=== PATIENT | female | born 1985 | race Caucasian/White ===

== ENCOUNTER → 2016-09-04 | Outpatient (CLI) | payer MEDICAID ==
--- NOTE | 2016-09-04 15:52 | RADIOLOGY REPORT (SQ) ---
EXAM DESCRIPTION: LUMBAR SPINE COMPLETE COMPLETED DATE/TIME: 09/04/2016 2:52 pm REASON FOR STUDY: LOW BACK PAIN M54.5 LOW BACK PAIN COMPARISON: None. NUMBER OF VIEWS: Five views including obliques. TECHNIQUE: AP, lateral, oblique, and sacral radiographic images acquired of the lumbar spine. LIMITATIONS: None. FINDINGS: MINERALIZATION: Normal. SEGMENTATION: Normal. No transitional anatomy. ALIGNMENT: Very mild convex leftward lower lumbar curvature VERTEBRAE: Maintained height. No fracture or worrisome bone lesion. DISCS: Disc space loss of height at L4-5 and L5-S1 POSTERIOR ELEMENTS: Question spondylolysis on the left at L4, with superimposed left-sided L4-5 facet arthropathy HARDWARE: None in the spine. PARASPINAL SOFT TISSUES: Normal. PELVIS: Intact as visualized. No fractures or worrisome bone lesions. SI joints intact. OTHER: Clips right upper quadrant post cholecystectomy IMPRESSION: Lower lumbar disc space loss of height at L4-5 and L5-S1. Asymmetric left-sided facet hypertrophy at L4-5. Question left-sided L4 spondylolysis TECHNICAL DOCUMENTATION: JOB ID: [id number] [employer]- All Rights Reserved
== END ==
LOC: OD 14:36
PROVIDERS: ATTEND Family Medicine
DX: M54.5 Low back pain (principal)
CPT/HCPCS: 72110

== ENCOUNTER 2017-06-20 16:51 | Emergency (ER) | payer MEDICAID ==
--- NOTE | 2017-06-20 17:46 | ER Document Report ---
ED Medical Screen (RME) - General Chief Complaint: Dizziness Stated Complaint: DIZZY Time Seen by Provider: 06/20/17 17:34 Notes: RME DISCLOSURE I have seen this patient as part of a Rapid Medical Evaluation and, if applicable, placed any initially appropriate orders. The patient will be seen and fully evaluated, including a full history and physical exam, by a provider ( in Main ED or Fast Track) when a room becomes available. 31-year-old female here with several days of nausea lightheadedness palpitations chest pain shortness of breath tremors. It initially started with the nausea then followed by the other symptoms. She denies any illicit drug use , excessive caffeine, thyroid issues, new medications. She denies any prior history of similar. She does have a history of anxiety but states that this does not feel like an anxiety attack and is adamant of this. EXAM Regular rate and rhythm TRAVEL OUTSIDE OF THE [place] IN LAST 30 DAYS: No - Related Data Allergies/Adverse Reactions: No Known Allergies Allergy (Verified 06/20/17 17:09) Past Medical History - Social History Chew tobacco use (# tins/day): No Frequency of alcohol use: Rare Drug Abuse: None Renal/ Medical History: Denies: Hx Peritoneal Dialysis - Immunizations Hx Diphtheria, Pertussis, Tetanus Vaccination: Yes - given today Physical Exam - Vital signs Vitals: Temp Pulse Resp BP Pulse Ox 98.5 F 79 18 134/71 H 99 06/20/17 17:26 06/20/17 17:26 06/20/17 17:26 06/20/17 17:06/20/17 17:26 Course - Vital Signs Vital signs: Temp Pulse Resp BP Pulse Ox 98.5 F 79 18 134/71 H 99 06/20/17 17:26 06/20/17 17:26 06/20/17 17:26 06/20/17 17:26 06/20/17 17:26
[2017-06-20 18:04] LABS: ABSOLUTE LYMPHOCYTES (AUTO) 1.7 10^3/uL (0.5-4.7); ABSOLUTE MONOCYTES (AUTO) 0.4 10^3/uL (0.1-1.4); ABSOLUTE NEUT (AUTO) 8.5 10^3/uL (1.7-8.2); BASOPHILS % (AUTO) 0.3 % (0-2); EOSINOPHILS % (AUTO) 0.2 % (0-6); HEMOGLOBIN 13.5 g/dL (12.0-15.5); LYMPHOCYTES % (AUTO) 15.5 % (13-45); MEAN CORPUSCULAR HEMOGLOBIN 29.3 pg (27.0-33.4); MEAN CORPUSCULAR HGB CONC 33.8 g/dL (32.0-36.0); MEAN CORPUSCULAR VOLUME 87 fl (80-97); MONOCYTES % (AUTO) 3.8 % (3-13); PLATELET COUNT 377 10^3/uL (150-450); RED BLOOD COUNT 4.61 10^6/uL (3.72-5.28); RED CELL DISTRIBUTION WIDTH 13.3 % (11.5-14.0); SEGMENTED NEUTROPHILS % (AUTO) 80.2 % (42-78); TOTAL CELLS COUNTED % (AUTO) 100 %; WHITE BLOOD COUNT 10.6 10^3/uL (4.0-10.5)
--- NOTE | 2017-06-20 18:16 | RADIOLOGY REPORT (SQ) ---
EXAM DESCRIPTION: CHEST 2 VIEWS COMPLETED DATE/TIME: 06/20/2017 6:05 pm REASON FOR STUDY: CP palpitations COMPARISON: None. EXAM PARAMETERS: NUMBER OF VIEWS: two views TECHNIQUE: Digital Frontal and Lateral radiographic views of the chest acquired. RADIATION DOSE: NA LIMITATIONS: none FINDINGS: LUNGS AND PLEURA: No opacities, masses or pneumothorax. No pleural effusion. MEDIASTINUM AND HILAR STRUCTURES: No masses or contour abnormalities. HEART AND VASCULAR STRUCTURES: Heart normal size. No evidence for failure. BONES: No acute findings. HARDWARE: None in the chest. OTHER: No other significant finding. IMPRESSION: NO ACUTE RADIOGRAPHIC FINDING IN THE CHEST. TECHNICAL DOCUMENTATION: JOB ID: [id number] [employer]- All Rights Reserved Reading location - IP/workstation name: [email or web address]
[2017-06-20 18:21] LABS: ANION GAP 10 (5-19); BLOOD UREA NITROGEN 8 mg/dL (7-20); CALCIUM 10.2 mg/dL (8.4-10.2); CARBON DIOXIDE 27 mmol/L (22-30); CHLORIDE 104 mmol/L (98-107); GLUCOSE 100 mg/dL (75-110); POTASSIUM 4.1 mmol/L (3.6-5.0); SODIUM 141.2 mmol/L (137-145)
--- NOTE | 2017-06-20 19:00 | EKG REPORT ---
SEVERITY:- NORMAL ECG - SINUS RHYTHM : Confirmed by: Estuardo Anne 20-Jun-2017 19:00:25
--- NOTE | 2017-06-20 19:00 | ER Document Report ---
ED General - General Chief Complaint: Dizziness Stated Complaint: DIZZY Time Seen by Provider: 06/20/17 17:34 Notes: Patient is a 31-year-old female with a past medical history of anxiety and polycystic ovarian syndrome who presents with 4 days of multiple symptoms including body aches, fatigue, intermittent palpitations, lightheadedness, dizziness, "and just not feeling like myself". Patient denies any history of similar symptoms in the past although does admit to a history of anxiety for which she does not currently receive any treatment. She has not noted anything seems to improve or worsen her symptoms. She is uncertain of any triggers for these symptoms. She denies any chest pain, shortness of breath, syncope, vomiting, fever, or altered mental status. She has not seen her primary care doctor regarding today's concerns. TRAVEL OUTSIDE OF THE [place] IN LAST 30 DAYS: No - Related Data Allergies/Adverse Reactions: No Known Allergies Allergy (Verified 06/20/17 17:09) Past Medical History - General Information source: Patient - Social History Smoking Status: Never Smoker Chew tobacco use (# tins/day): No Frequency of alcohol use: Rare Drug Abuse: None Lives with: Spouse/Significant other Family History: Reviewed & Not Pertinent Patient has suicidal ideation: No Patient has homicidal ideation: No Renal/ Medical History: Denies: Hx Peritoneal Dialysis - Immunizations Hx Diphtheria, Pertussis, Tetanus Vaccination: Yes - given today Review of Systems - Review of Systems Notes: Constitutional: Negative for fever. HENT: Negative for sore throat. Eyes: Negative for visual changes. Cardiovascular: Negative for chest pain. Respiratory: Negative for shortness of breath. Gastrointestinal: Negative for abdominal pain, vomiting or diarrhea. Genitourinary: Negative for dysuria. Musculoskeletal: Negative for back pain. Skin: Negative for rash. Neurological: Negative for headaches, weakness or numbness. 10 point ROS negative except as marked above and in HPI. Physical Exam - Vital signs Vitals: Temp Pulse Resp BP Pulse Ox 98.5 F 79 18 134/71 H 99 06/20/17 17:26 06/20/17 17:26 06/20/17 17:26 06/20/17 17:26 06/20/17 17:26 Interpretation: Normal Notes: PHYSICAL EXAMINATION: GENERAL: Well-appearing, well-nourished and in no acute distress. HEAD: Atraumatic, normocephalic. EYES: Pupils equal round and reactive to light, extraocular movements intact, sclera anicteric, conjunctiva are normal. ENT: nares patent, oropharynx clear without exudates. Moist mucous membranes. NECK: Normal range of motion, supple without lymphadenopathy LUNGS: Breath sounds clear to auscultation bilaterally and equal. No wheezes rales or rhonchi. HEART: Regular rate and rhythm without murmurs ABDOMEN: Soft, nontender, normoactive bowel sounds. No guarding, no rebound. No masses appreciated. EXTREMITIES: Normal range of motion, no pitting or edema. No cyanosis. NEUROLOGICAL: Face symmetric. Tongue protrudes midline. Extraocular motions intact. Pupils are 2 mm and equally reactive. Normal speech, normal gait. 5 out of 5 strength in both the distal and proximal upper and lower extremities bilaterally. Sensation is grossly intact throughout. Finger to nose testing normal. Pronator drift normal. PSYCH: Moderately anxious SKIN: Warm, Dry, normal turgor, no rashes or lesions noted. Course - Re-evaluation Re-evalutation: 06/20/17 18:55 Patient presents with multiple vague complaints that did not appear to be concerning for any acute life-threatening pathology. Vitals are within normal limits at triage and at time of discharge. Physical examination is unremarkable. Patient has tolerated oral intake without difficulty. Patient was not noted to be in distress at any point during their ER visit. Patient's constellation of symptoms appears to be most consistent with a psychogenic origin likely chronic daily anxiety. An appropriate panel of laboratory testing was ordered in triage including thyroid studies and is noted to be normal. Although patient is complained of palpitations including while here in the emergency department she has had no irregularity to her rhythm or tachycardia during her entire time on the clinical research monitor and her EKG is likewise normal. She does have a known history of anxiety and I have encouraged her to begin taking fluoxetine which I am happy to prescribe. She is in agreement with this. She has agreed to follow-up with her primary care doctor. At this time, based on the reassuring evaluation, I do not suspect an acute RI, pulmonary embolus, aortic dissection, acute intra-abdominal pathology , stroke, or sepsis.Will discharge with return precautions and follow-up recommendations. Verbal discharge instructions given a the bedside and opportunity for questions given. Medication warnings reviewed. Patient is in agreement with this plan and has verbalized understanding of return precautions and the need for primary care follow-up in the next 24-72 hours. - Vital Signs Vital signs: Temp Pulse Resp BP Pulse Ox 98.5 F 79 16 134/63 H 100 06/20/17 17:26 06/20/17 17:26 06/20/17 19:02 06/20/17 19:02 06/20/17 19:02 - Laboratory Result Diagrams: 06/20/17 17:51 06/20/17 17:51 Laboratory results interpreted by me: 06/20/17 17:51 WBC 10.6 H Seg Neutrophils % 80.2 H Absolute Neutrophils 8.5 H - Diagnostic Test Radiology reviewed: Image reviewed, Reports reviewed Radiology results interpreted by me: 06/20/17 18:55 Chest x-ray: No acute infiltrate or pneumothorax - EKG Interpretation by Me Additional EKG results interpreted by me: 06/20/17 18:56 Normal sinus rhythm. Rate 79. No ST elevations or depressions. QTC is 418. Discharge - Discharge Clinical Impression: Anxiety, generalized, Palpitations, Body aches Condition: Good Disposition: HOME, SELF-CARE Additional Instructions: Please return to the emergency room immediately if you experience any concerning symptoms including high fevers, severe headache, chest pain, difficulty breathing, abdominal pain, slurred speech, numbness or weakness in your arms or legs, or any other symptom that concerns you. Your symptoms are likely secondary to generalized anxiety as all of your labs and physical examination as well as vitals are normal here today. Please begin taking fluoxetine 20 mg daily. Please keep in mind that this medication will take at least 6 weeks to help improve your symptoms and will need to be continued by your primary care doctor. Prescriptions: Fluoxetine HCl 20 mg PO DAILY #30 capsule Referrals: KARENA GROVER PA-C [Primary Care Provider] - Follow up in 3-5 days
[2017-06-20 19:41] VITALS: BP 134/63
== END 2017-06-20 19:50 | disposition home or self-care (01) ==
LOC: ER 16:51
DX: F41.9 Anxiety disorder, unspecified (principal); R00.2 Palpitations; M79.1 Myalgia; R42 Dizziness and giddiness; R53.83 Other fatigue
CPT/HCPCS: 36415; 71046; 80048; 83735; 84100; 84443; 84484; 85025; 93005; 93010; 99284

== ENCOUNTER 2018-10-23 12:03 | Emergency (ER) | payer MEDICAID, OTHER ==
[2018-10-23 12:22] VITALS: BP 144/89
[2018-10-23 13:15] LABS: APPEARANCE,URINE SLIGHTLY-CLOUDY; BILIRUBIN,URINE NEGATIVE (NEGATIVE); COLOR,URINE YELLOW; GLUCOSE, URINE NEGATIVE (NEGATIVE); KETONES,URINE NEGATIVE (NEGATIVE); LEUKOCYTE ESTERASE,URINE NEGATIVE (NEGATIVE); NITRITE,URINE NEGATIVE (NEGATIVE); PROTEIN,URINE NEGATIVE (NEGATIVE); URINE SPECIFIC GRAVITY 1.024; UROBILINOGEN,URINE NEGATIVE mg/dL (<2.0)
[2018-10-23] MEDS ORDERED: OXYCODONE-ACETAMINOPHEN 5-325 MG TABLET PO ONE (13:21)
--- NOTE | 2018-10-23 13:27 | ER Document Report ---
ED General - General Chief Complaint: Low Back Pain Stated Complaint: LOWER BACK PAIN Time Seen by Provider: 10/23/18 12:51 Primary Care Provider: KARENA GROVER PA-C [Primary Care Provider] - Follow up as needed TRAVEL OUTSIDE OF THE [place] IN LAST 30 DAYS: No - HPI Notes: Patient is a 33-year-old female with a history of degenerative disc disease who presents emergency department for evaluation of lower back pain. The pain radiates intermittently into her bilateral legs. Is in the sacral region. She states this seems to have been exacerbated after vacuuming. She describes it as a 9 out of 10, sharp and stabbing. She states that she tried Tylenol and ibuprofen at home without any significant relief. She denies any bowel or bladder incontinence, no saddle anesthesia, no focal numbness or weakness. - Related Data Allergies/Adverse Reactions: No Known Allergies Allergy (Verified 10/23/18 12:04) Past Medical History - General Information source: Patient - Social History Smoking Status: Current Every Day Smoker Family History: Reviewed & Not Pertinent Patient has suicidal ideation: No Patient has homicidal ideation: No Renal/ Medical History: Denies: Hx Peritoneal Dialysis Musculoskeletal Medical History: Reports Other - Degenerative disc disease - Immunizations Hx Diphtheria, Pertussis, Tetanus Vaccination: Yes - given today Review of Systems - Review of Systems Constitutional: No symptoms reported EENT: No symptoms reported Cardiovascular: No symptoms reported Respiratory: No symptoms reported Gastrointestinal: No symptoms reported Genitourinary: No symptoms reported Musculoskeletal: See HPI Skin: No symptoms reported Neurological/Psychological: No symptoms reported Physical Exam - Vital signs Vitals: Temp Pulse Resp BP Pulse Ox 98.1 F 100 16 144/89 H 99 10/23/18 12:21 10/23/18 12:21 10/23/18 12:21 10/23/18 12:21 10/23/18 12:21 - Notes Notes: Vital signs reviewed, please refer to chart. Head is normocephalic, atraumatic. Pupils equal round, reactive to light. Neck is supple without meningismus. Heart is regular rate and rhythm. Lungs are clear to auscultation bilaterally. Abdomen is soft, nontender, normoactive bowel sounds throughout. Extremities without cyanosis, clubbing. Posterior calves are nontender. Peripheral pulses are equal. Skin is warm and dry. Patient is awake, alert, neurological exam is nonfocal. The spine yields mild midline tenderness at a proximally L3, which according to the patient is been present since her epidural. No associated step-off, skin changes. No real paraspinal musculature tenderness appreciated. She does have some mild piriformis tenderness. Negative straight leg raise bilaterally. Strength is plus 5 out of 5 bilateral lower extremities. Patellar and Achilles reflexes are diminished but symmetrical. Sensation is intact. Course - Re-evaluation Re-evalutation: 10/23/18 13:25 Patient presents emergency department for evaluation of back pain. She has a history of degenerative disc disease. Her symptoms are most consistent with musculoskeletal back pain. She was told to apply moist heat to the area. Avoid strict bedrest. She was given a Percocet here. I will send her home with a Medrol Dosepak and some muscle relaxers. She is encouraged to follow-up with primary care, follow-up on physical therapy exercises, as she had been instructed in the past. She is to return to the ED with worsening or new concerning symptoms of any sort. - Vital Signs Vital signs: Temp Pulse Resp BP Pulse Ox 98.1 F 100 16 144/89 H 99 10/23/18 12:21 10/23/18 12:21 10/23/18 12:21 10/23/18 12:21 10/23/18 12:21 - Laboratory Laboratory results interpreted by me: 10/23/18 13:00 Urine Blood MODERATE H Discharge - Discharge Clinical Impression: Low back pain Qualifiers: Chronicity: unspecified Sciatica presence: with sciatica Sciatica laterality: bilateral sciatica Condition: Stable Disposition: HOME, SELF-CARE Instructions: Oral Narcotic Medication ([facility]), Low Back Pain ([facility]), Warm Packs ([facility]) Additional Instructions: Moist heat to the lower back. Take medications as prescribed. Please watch for dizziness and drowsiness with the muscle relaxers. If you develop worsening or new concerning symptoms of any sort, return immediately to the emergency department for evaluation. Referrals: KARENA GROVER PA-C [Primary Care Provider] - Follow up as needed
== END 2018-10-23 13:32 | disposition home or self-care (01) ==
LOC: ER 12:03
DX: M54.42 Lumbago with sciatica, left side (principal); M54.41 Lumbago with sciatica, right side; F17.200 Nicotine dependence, unspecified, uncomplicated
CPT/HCPCS: 81001; 81025; 99283